=== PATIENT | male | born 1995 | race Caucasian/White ===

== ENCOUNTER 2023-05-03 22:25 | Emergency (ER) | payer BC, MEDICAID ==
[~2023-05-03] VITALS: Ht 167.6 cm; Wt 72.6 kg
[2023-05-03 22:43] VITALS: BP_SYST 135; PULSE 113; RESP 24; TEMP 98; O2SAT 98
[2023-05-03] MEDS ORDERED: FAMOTIDINE PF 20 MG/2 ML VIAL IVP ONE (22:45)
[2023-05-03] MEDS ORDERED: methylPREDNISolone SOD SUCC/PF 62.5 MG/ML VIAL IVP ONE (22:45)
[2023-05-03] MEDS ORDERED: NACL 0.9% 1,000 ML IV ONE ×2 (23:15→23:30)
[2023-05-03] MEDS ORDERED: IPRATROPIUM/ALBUTEROL SULFATE 3 ML AMPUL.NEB (DUONEB) INH ONE (23:30)
[2023-05-03] MEDS ORDERED: MAGNESIUM SULFATE 50 ML IV ONE (23:45)
[2023-05-04] MEDS ORDERED: ALBUTEROL SULFATE 0.083% 2.5 MG/3 ML VIAL.NEB INH ONE (00:45)
[2023-05-04] MEDS ORDERED: ALBMDI INH (02:20)
[2023-05-04] MEDS ORDERED: EPIN0.3P3 IM (02:20)
[2023-05-04] MEDS ORDERED: DIPH25CA83 PO (02:20)
[2023-05-04] MEDS ORDERED: FAMO20TA8 PO (02:20)
[2023-05-04] MEDS ORDERED: PRED20TA PO (02:20)
[2023-05-04 02:25] VITALS: BP_SYST 10; PULSE 97; RESP 14; TEMP 98; O2SAT 95
== END 2023-05-04 02:25 | disposition home or self-care (01) ==
LOC: SED 22:25
DX: T78.04XA Anaphylactic reaction due to fruits and vegetables, initial encounter (principal); J45.901 Unspecified asthma with (acute) exacerbation; R06.02 Shortness of breath; R21 Rash and other nonspecific skin eruption; Z88.5 Allergy status to narcotic agent; Z79.899 Other long term (current) drug therapy
CPT/HCPCS: 99291; 96375; 96361; 71045; 96365; 96366; J3490; J2930; J7030 ×2; J3475